=== PATIENT | female | born 1975 | race Two or more races ===

== ENCOUNTER 2022-11-12 03:41 | Emergency (ER) | payer MEDICAID ==
[2022-11-12 03:53] VITALS: BP 142/86; PULSE 107
[2022-11-12] MEDS ORDERED: Ibuprofen 600 MG Tab PO ONE (03:57)
[2022-11-12 04:33] LABS: CORONAVIRUS COVID-19 NAA NEGATIVE (NEGATIVE)
[2022-11-12] MEDS ORDERED: Albuterol/Ipratropium 3.0-0.5 MG/3 ML Neb Soln NEB ONE (04:35)
== END 2022-11-12 04:59 | disposition home or self-care (01) ==
LOC: FB.ED 03:41
DX: J10.1 Influenza due to other identified influenza virus with other respiratory manifestations (principal); J45.41 Moderate persistent asthma with (acute) exacerbation; E66.9 Obesity, unspecified; Z72.0 Tobacco use; Z20.822 Contact with and (suspected) exposure to COVID-19; Z79.51 Long term (current) use of inhaled steroids; Z68.33 Body mass index [BMI] 33.0-33.9, adult
CPT/HCPCS: 0240U; 99284; A9270-GY; J7620

== ENCOUNTER 2024-10-31 21:16 | Emergency (ER) | payer MEDICAID ==
[2024-10-31] MEDS: methylPREDNISolone Sodium Succinate 125 MG/2 ML SDV IM ONE (21:40)
[2024-10-31] MEDS: Albuterol/Ipratropium 3.0-0.5 MG/3 ML Neb Soln NEB ONE (21:41)
[2024-10-31 22:33] VITALS: BP 116/61; PULSE 69
== END 2024-10-31 22:17 | disposition home or self-care (01) ==
LOC: FB.ED 21:16
DX: J45.909 Unspecified asthma, uncomplicated (principal); B97.4 Respiratory syncytial virus as the cause of diseases classified elsewhere; E66.9 Obesity, unspecified; Z79.899 Other long term (current) drug therapy; Z79.51 Long term (current) use of inhaled steroids; Z68.41 Body mass index [BMI] 40.0-44.9, adult
CPT/HCPCS: 71045; 94640; 96372; 99284; 99285; A9270-GY; J2919

== ENCOUNTER 2024-11-11 08:11 | Emergency (ER) | payer MEDICAID ==
[2024-11-11 08:58] LABS: BASOPHILS PERCENT AUTO 0.4 % (0.2-1.5); EOSINOPHILS ABSOLUTE AUTO 0.1 x10-3/uL (0.0-0.8); EOSINOPHILS PERCENT AUTO 0.9 % (0.6-8.1); HEMATOCRIT 38.8 % (34.2-48.2); HEMOGLOBIN 12.9 g/dL (11.4-15.5); LYMPHOCYTES ABSOLUTE AUTO 1.9 x10-3/uL (1.0-4.4); LYMPHOCYTES PERCENT AUTO 20.9 % (18.4-52.1); MEAN CORPUSCULAR HEMOGLOBIN 27.1 pg (23.9-33.9); MEAN CORPUSCULAR HGB CONC 33.3 g/dL (31.9-34.8); MEAN CORPUSCULAR VOLUME 81.6 fL (76.7-100.5); MEAN PLATELET VOLUME 8.4 fL (7.1-12.4); MONOCYTES ABSOLUTE AUTO 0.4 x10-3/uL (0.3-1.0); MONOCYTES PERCENT AUTO 4.6 % (4.4-15.7); NEUTROPHILS ABSOLUTE AUTO 6.6 x10-3/uL (1.5-6.3); NEUTROPHILS PERCENT AUTO 73.2 % (30.8-76.2); PLATELET COUNT,PLT 200 x10(3)uL (151-488); RED BLOOD CELL COUNT 4.76 x10(6)uL (3.60-5.20); RED CELL DISTRIBUTION WIDTH 15.5 % (12.3-16.5)
[2024-11-11] MEDS: methylPREDNISolone Sodium Succinate 125 MG/2 ML SDV IVPUSH ONE (09:02)
[2024-11-11] MEDS: Albuterol/Ipratropium 3.0-0.5 MG/3 ML Neb Soln NEB ONE (09:02)
[2024-11-11] MEDS: Sodium Chloride 0.9% 10 ML Syringe FLUSH PRN (09:02)
[2024-11-11] MEDS: cefTRIAXone 1 GM Vial IVPUSH ONE (09:02)
[2024-11-11 09:03] LABS: BLOOD UREA NITROGEN,BUN 11 mg/dL (7-18); BUN/CREATININE RATIO 12.2 (9-20); CALCIUM 8.2 mg/dL (8.6-10.2); CARBON DIOXIDE,CO2 25 mmol/L (21-32); CHLORIDE,CL 102 mmol/L (100-110); CREATININE 0.9 mg/dL (0.55-1.02); ESTIMATED GFR 80 mL/min (>60); GLUCOSE RANDOM 200 mg/dL (80-116); POTASSIUM,K 3.8 mmol/L (3.5-5.3); SODIUM,NA 135 mmol/L (135-145)
[2024-11-11 09:09] LABS: A/G RATIO 0.8; ALANINE AMINOTRANSFERASE,ALT 33 U/L (12-36); ALKALINE PHOSPHATASE 86 IU/L (56-112); ASPARTATE AMNIOTRANSFERASE,AST 12 IU/L (5-25); BILIRUBIN TOTAL 0.3 mg/dL (0.1-1.3); MAGNESIUM 1.7 mg/dL (1.8-2.5); PROTEIN TOTAL,TP 6.8 g/dL (6.0-8.0)
[2024-11-11 09:37] VITALS: BP 126/56; PULSE 80
== END 2024-11-11 09:38 | disposition home or self-care (01) ==
LOC: FB.ED 08:11
DX: J45.21 Mild intermittent asthma with (acute) exacerbation (principal); E66.9 Obesity, unspecified; J45.909 Unspecified asthma, uncomplicated; R73.9 Hyperglycemia, unspecified; Z79.899 Other long term (current) drug therapy; Z87.891 Personal history of nicotine dependence
CPT/HCPCS: 71046; 80053; 83735; 85025; 86140; 87651; 94640; 96374; 96375; 99284; 99285-25; A9270-GY; J0696; J2919

== ENCOUNTER 2024-12-03 21:20 | Emergency (ER) | payer MEDICAID ==
[2024-12-03 22:00] LABS: BASOPHILS PERCENT AUTO 0.5 % (0.2-1.5); EOSINOPHILS ABSOLUTE AUTO 0.1 x10-3/uL (0.0-0.8); HEMATOCRIT 39.1 % (34.2-48.2); HEMOGLOBIN 12.8 g/dL (11.4-15.5); LYMPHOCYTES PERCENT AUTO 37.3 % (18.4-52.1); MEAN CORPUSCULAR HEMOGLOBIN 26.4 pg (23.9-33.9); MEAN CORPUSCULAR HGB CONC 32.6 g/dL (31.9-34.8); MEAN PLATELET VOLUME 8.8 fL (7.1-12.4); MONOCYTES ABSOLUTE AUTO 0.6 x10-3/uL (0.3-1.0); MONOCYTES PERCENT AUTO 7.1 % (4.4-15.7); NEUTROPHILS ABSOLUTE AUTO 4.3 x10-3/uL (1.5-6.3); NEUTROPHILS PERCENT AUTO 54.1 % (30.8-76.2); PLATELET COUNT,PLT 253 x10(3)uL (151-488); RED BLOOD CELL COUNT 4.83 x10(6)uL (3.60-5.20); RED CELL DISTRIBUTION WIDTH 15.4 % (12.3-16.5); WHITE BLOOD CELL COUNT,WBC 7.9 x10-3/uL (3.0-10.3)
[2024-12-03 22:04] LABS: BLOOD UREA NITROGEN,BUN 13 mg/dL (7-18); BUN/CREATININE RATIO 16.3 (9-20); CALCIUM 9.1 mg/dL (8.6-10.2); CARBON DIOXIDE,CO2 25 mmol/L (21-32); CHLORIDE,CL 103 mmol/L (100-110); CREATININE 0.8 mg/dL (0.55-1.02); EST CRCL DRUG DOSING (CG) 63.12 mL/min; ESTIMATED GFR 92 mL/min (>60); GLUCOSE RANDOM 122 mg/dL (80-116); POTASSIUM,K 3.6 mmol/L (3.5-5.3); SODIUM,NA 139 mmol/L (135-145)
[2024-12-03 22:10] LABS: A/G RATIO 0.9; ALANINE AMINOTRANSFERASE,ALT 38 U/L (12-36); ALBUMIN 3.5 g/dL (3.5-5.2); ALKALINE PHOSPHATASE 95 IU/L (56-112); ASPARTATE AMNIOTRANSFERASE,AST 17 IU/L (5-25); BILIRUBIN TOTAL 0.2 mg/dL (0.1-1.3); PROTEIN TOTAL,TP 7.3 g/dL (6.0-8.0)
[2024-12-03 22:17] LABS: TSH ULTRASENSITIVE 3.38 IU/mL (0.36-3.74)
[2024-12-03 22:20] LABS: HEMOGLOBIN A1C 6.9 % (<5.7)
[2024-12-03] MEDS: Iopamidol 755 Mg/ML 100 ML Bottle IV ONE (23:01)
[2024-12-03 23:31] VITALS: BP 124/77; PULSE 75
== END 2024-12-03 23:25 | disposition home or self-care (01) ==
LOC: FB.ED 21:20
DX: R06.02 Shortness of breath (principal); J45.909 Unspecified asthma, uncomplicated; Z79.51 Long term (current) use of inhaled steroids; Z79.899 Other long term (current) drug therapy
CPT/HCPCS: 36415; 71046; 71275; 80053; 83036; 83880; 84443; 84484; 85025; 85379; 93005; 93010; 99283; 99285; Q9967

== ENCOUNTER 2025-08-04 09:31 | Emergency (ER) | payer MEDICAID ==
[2025-08-04] MEDS ORDERED: Sodium Chloride 0.9% 10 ML Syringe FLUSH PRN (10:15)
[2025-08-04 10:36] LABS: BASOPHILS ABSOLUTE AUTO 0.0 x10-3/uL (0.0-0.1); BASOPHILS PERCENT AUTO 0.4 % (0.2-1.5); EOSINOPHILS ABSOLUTE AUTO 0.1 x10-3/uL (0.0-0.8); EOSINOPHILS PERCENT AUTO 1.2 % (0.6-8.1); LYMPHOCYTES ABSOLUTE AUTO 2.2 x10-3/uL (1.0-4.4); LYMPHOCYTES PERCENT AUTO 28.3 % (18.4-52.1); MEAN PLATELET VOLUME 8.7 fL (7.1-12.4); MONOCYTES ABSOLUTE AUTO 0.4 x10-3/uL (0.3-1.0); MONOCYTES PERCENT AUTO 4.9 % (4.4-15.7); NEUTROPHILS ABSOLUTE AUTO 5.1 x10-3/uL (1.5-6.3); NEUTROPHILS PERCENT AUTO 65.2 % (30.8-76.2); PLATELET COUNT,PLT 234 x10(3)uL (151-488); RED BLOOD CELL COUNT 4.94 x10(6)uL (3.60-5.20); RED CELL DISTRIBUTION WIDTH 14.7 % (12.3-16.5); WHITE BLOOD CELL COUNT,WBC 7.9 x10-3/uL (3.0-10.3)
[2025-08-04] MEDS: Ondansetron 4 MG/2 ML SDV IVPUSH ONE (10:38)
[2025-08-04] MEDS: Ketorolac 30 MG/ML SDV IVPUSH ONE (10:41)
[2025-08-04 10:43] LABS: BLOOD UREA NITROGEN,BUN 11 mg/dL (7-18); CARBON DIOXIDE,CO2 27 mmol/L (21-32); CHLORIDE,CL 103 mmol/L (100-110); CREATININE 0.7 mg/dL (0.55-1.02); EST CRCL DRUG DOSING (CG) 71.36 mL/min; ESTIMATED GFR 107 mL/min (>60); GLUCOSE RANDOM 107 mg/dL (80-116); POTASSIUM,K 3.7 mmol/L (3.5-5.3); SODIUM,NA 139 mmol/L (135-145)
[2025-08-04 10:48] LABS: A/G RATIO 1.0; ALANINE AMINOTRANSFERASE,ALT 29 U/L (12-36); ASPARTATE AMNIOTRANSFERASE,AST 16 IU/L (5-25); BILIRUBIN TOTAL 0.4 mg/dL (0.1-1.3); PROTEIN TOTAL,TP 7.5 g/dL (6.0-8.0)
[2025-08-04 10:50] LABS: LACTIC ACID 0.8 mmol/L (0.4-2.0)
[2025-08-04] MEDS: HYDROmorphone 2 MG/ML SDV IVPUSH ONE (11:47)
[2025-08-04 15:11] VITALS: BP 125/55; PULSE 76
== END 2025-08-04 12:57 | disposition home or self-care (01) ==
LOC: FB.ED 09:31
DX: G43.009 Migraine without aura, not intractable, without status migrainosus (principal); J45.909 Unspecified asthma, uncomplicated; E66.9 Obesity, unspecified; F17.210 Nicotine dependence, cigarettes, uncomplicated; Z56.0 Unemployment, unspecified; Z79.51 Long term (current) use of inhaled steroids; Z79.899 Other long term (current) drug therapy
CPT/HCPCS: 36415; 70450; 80053; 83605; 83735; 85025; 86140; 96361; 96374; 96375; 99284; A9270; J1171; J1885; J2405; J7030